=== PATIENT | female | born 1965 | race Hispanic/Latino ===

== ENCOUNTER 2019-12-14 17:39 | Emergency (ER) | payer OTHER ==
[~2019-12-14] VITALS: Ht 160 cm; Wt 76.7 kg
[2019-12-14] MEDS ORDERED: VITAMIN D3250 MC1 (18:03)
[2019-12-14] MEDS ORDERED: ESTROVEN ENERG1 EACH (18:03)
[2019-12-14] MEDS ORDERED: HYDROCHLOROTH12.5 MG (18:03)
[2019-12-14] MEDS ORDERED: METOPROLOL SUCC50 MG PO (18:03)
[2019-12-14] MEDS ORDERED: ONE DAILY HEAL1 EACH (18:03)
[2019-12-14] MEDS ORDERED: LORAZEPAM 0.5 MG TAB PO ONE (18:15)
--- NOTE | 2019-12-14 18:17 | Emergency Department Note ---
History of Present Illnes History of Present Illness Chief Complaint: mild to moderate timmons started s/p starting phentermine History of Present Illness This is a 54 year old female. was doing well prior to this. 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 Onset (how long ago): day(s) (3) Location: generalize Quality: pressure Radiation: Reports non-radiation Severity: moderate Onset quality: gradual Duration (how long): day(s) (3) Progression: waxing and waning Chronicity: new Context: Denies recent illness, Denies recent surgery, Denies recent immobilization, Denies recent travel, Denies trauma/injury, Denies new medic ations, Denies hx of DVT/PE, Denies non-compliance w/ medications Relieving factors: none Exacerbating factors: none Associated symptoms: Reports headaches; Denies nausea/vomiting, Denies weakness Treatments prior to arrival: none Past Medical/Family History Physician Review I have reviewed the patient's past medical and family history. Any updates have been documented here. Past Medical History Recent Fever: No Clinical Suspicion of Infectio: No New/Unexplained Change in Ment: No Past Medical History: Hypertension Past Surgical History: Social History Smoking Cessation: Never Smoker Counseling Performed: No Alcohol Use: Occasional Any Illegal Drug Use: No TB Exposure/Symptoms: No Physically hurt or threatened: No Family History Family history of heart diseas: No Other Any Pre-Existing Lines (PICC,: No Is patient up to date on immun: Yes Last Flu: UTD Last Pneumovax: none Review of Systems Review of Systems Constitutional: Reports no symptoms EENTM: Reports no symptoms Cardiovascular: Reports no symptoms Respiratory: Reports no symptoms Gastrointestinal: Reports no symptoms Genitourinary: Reports no symptoms Musculoskeletal: Reports no symptoms Integumentary: Reports no symptoms Neurological: Reports as per HPI Psychological: Reports as per HPI, Reports anxiety Endocrine: Reports no symptoms Hematological/Lymphatic: Reports no symptoms Physical Exam Related Data Allergies: Coded Allergies: No Known Allergies (Unverified , 12/14/19) Triage Vital Signs Vital Signs Date Time Temp Pulse Resp B/P (MAP) Pulse Ox O2 Delivery O2 Flow Rate FiO2 12/14/19 17:40 99.2 64 15 182/76 99 Vital signs reviewed: Yes Physical Exam CONSTITUTIONAL Constitutional: Present well-developed, Present well-nourished, Present other (+anxious) HENT HENT: Present normocephalic, Present atraumatic, Present oropharynx clear/moist, Present nose normal HENT L/R: Present left ext ear normal, Present right ext ear normal EYES Eyes: Reports PERRL, Reports conjunctivae normal NECK Neck: Present ROM normal PULMONARY Pulmonary: Present effort normal, Present breath sounds normal CARDIOVASCULAR Cardiovascular: Present regular rhythm, Present heart sounds normal, Present capillary refill normal, Present normal rate GASTROINTESTINAL Abdominal: Present soft, Present nontender, Present bowel sounds normal GENITOURINARY Genitourinary: Present exam deferred SKIN Skin: Present warm, Present dry MUSCULOSKELETAL Musculoskeletal: Present ROM normal NEUROLOGICAL Neurological: Present alert, Present oriented x 3, Present no gross motor or sensory deficits PSYCHOLOGICAL Psychological: Present mood/affect normal, Present judgement normal Assessment & Plan Medical Decision Making MDM stop phentermine. f/u with pcp as schedule tomorrow Assessment & Plan Final Impression: (1) Medication side effects (2) Stress reaction Depart Disposition: HOME, SELF-CARE Last Vital Signs Date Time Temp Pulse Resp B/P (MAP) Pulse Ox O2 Delivery O2 Flow Rate FiO2 12/14/19 17:40 99.2 64 15 182/76 99 Home Meds Reported Medications Multivit,Ca,Iron,Min/Fa/Mlh406 (ONE DAILY HEALTHY WEIGHT TAB) 1 Each Tablet 12/14/19 Cholecalciferol (Vitamin D3) (Vitamin D3) 250 Mcg Capsule, DAILY 12/14/19 Soy Isofl/Blk Coh/Gr Tea/Yerba ([employer] Caplet) 1 Each Tablet, DAILY 12/14/19 Hydrochlorothiazide (HYDROCHLOROTHIAZIDE) 12.5 Mg Tablet, DAILY 12/14/19 Metoprolol Succinate (METOPROLOL SUCCINATE) 50 Mg Tab.er.24h, 50 MG PO DAILY, MG 12/14/19 DANIELLE ARITA Dec 14, 2019 18:17
[2019-12-14] MEDS ORDERED: LORAZEPAM 0.5 MG TAB ONE (18:26)
[2019-12-14 18:50] VITALS: BP 148/67
== END 2019-12-14 18:44 | disposition home or self-care (01) ==
LOC: FSED 17:39
DX: R51 Headache (principal); T50.5X5A Adverse effect of appetite depressants, initial encounter; F43.9 Reaction to severe stress, unspecified; I10 Essential (primary) hypertension
CPT/HCPCS: 99283

== ENCOUNTER 2020-09-25 09:41 | Emergency (ER) | payer OTHER ==
[~2020-09-25] VITALS: Ht 160 cm; Wt 76.7 kg
[~2020-09-25 09:41] MED LIST: ESTROVEN ENERG1 EACH; HYDROCHLOROTH12.5 MG; METOPROLOL SUCC50 MG PO; ONE DAILY HEAL1 EACH; VITAMIN D3250 MC1
[2020-09-25] MEDS ORDERED: CEFDINIR300 MG PO (10:37)
[2020-09-25] MEDS ORDERED: ACETAMINOPHEN500 MG PO (10:37)
[2020-09-25] MEDS ORDERED: IBUPROFEN IB200 MG PO (10:37)
[2020-09-25] MEDS ORDERED: AZITHROMYCIN250 MG PO (11:26)
[2020-09-25] MEDS ORDERED: CEFTRIAXONE SOD 1 GM VIAL IM ONE (11:30)
== END 2020-09-25 11:53 | disposition home or self-care (01) ==
LOC: FSED 10:40
DX: R50.9 Fever, unspecified (principal); J15.9 Unspecified bacterial pneumonia; J40 Bronchitis, not specified as acute or chronic; R05 Cough; I10 Essential (primary) hypertension
CPT/HCPCS: 71046; 81003; 87400; 99283; J0696

== ENCOUNTER 2020-09-28 22:38 | Emergency (ER) | payer OTHER ==
[~2020-09-28] VITALS: Ht 160 cm; Wt 76.7 kg
[~2020-09-28 22:38] MED LIST changes: +ACETAMINOPHEN500 MG PO; +AZITHROMYCIN250 MG PO; +CEFDINIR300 MG PO; +IBUPROFEN IB200 MG PO
[2020-09-28] MEDS ORDERED: DEXAMETHASONE6 MG PO (23:26)
== END 2020-09-28 23:54 | disposition home or self-care (01) ==
LOC: FSED 22:53
DX: U07.1 COVID-19 (principal); J12.82 Pneumonia due to coronavirus disease 2019; I10 Essential (primary) hypertension
CPT/HCPCS: 99283

== ENCOUNTER 2024-10-23 22:51 | Emergency (ER) | payer OTHER ==
[~2024-10-23] VITALS: Ht 160 cm; Wt 73.9 kg
[~2024-10-23 22:51] MED LIST changes: +DEXAMETHASONE6 MG PO
[2024-10-23 23:02] VITALS: PULSE 65; RESP 18; TEMP 97.4
[2024-10-23] MEDS: KETOROLAC TROMETHAMINE 30 MG/ML VIAL IV STA (23:27)
[2024-10-23] MEDS ORDERED: IOPAMIDOL 370 MG/ML 100 ML INFUS..BTL INJ ONE (23:28)
[2024-10-23] MEDS: DEXAMETHASONE SOD PHOS INJ 4 MG/ML SDV IV ONE (23:28)
[2024-10-23] MEDS: METOCLOPRAMIDE HCL 10 MG/2ML VIAL IV ONE (23:28)
[2024-10-24] MEDS ORDERED: BACTRIM DS TAB1 EACH PO (01:49)
[2024-10-24] MEDS ORDERED: ULTRAM 50MG50 MG PO (01:49)
[2024-10-24 02:05] VITALS: BP 123/60; PULSE 73; RESP 18; TEMP 98.3; O2SAT 98
== END 2024-10-24 02:00 | disposition home or self-care (01) ==
LOC: FSED 22:55
DX: R51.9 Headache, unspecified (principal); N39.0 Urinary tract infection, site not specified; I10 Essential (primary) hypertension
CPT/HCPCS: 70450; 70496; 70498; 80053; 81003; 85025; 99284; J1100; J1885; J2765; Q9967